=== PATIENT | male | born 1945 | race Caucasian/White ===

== ENCOUNTER 2016-09-02 10:50 | Inpatient (IN) | payer MEDICARE, OTHER ==
[~2016-09-02] VITALS: Ht 177.8 cm; Wt 70.3 kg
--- NOTE | 2016-09-02 11:32 | NUR ---
RT IN PT ROOM
[2016-09-02 11:45] LABS: ABG PCO2 36 mmHg (35-45); ABG PH 7.41 (7.35-7.45)
[2016-09-02 11:46] LABS: ABG OXYGEN SATURATION 85 % (95-98); ABG PO2 49 mmHg (80-105); ARTERIAL BLOOD GAS DELIVERY Room Air
--- NOTE | 2016-09-02 11:46 | NUR ---
XRAY IN PT ROOM
[2016-09-02 11:56] LABS: MEAN CORPUSCULAR HEMOGLOBIN 28.8 PG (26.0-34.0); MEAN CORPUSCULAR HGB CONC 34.3 g/dL (31.0-37.0); MEAN CORPUSCULAR VOLUME 84 FL (80-100); MEAN PLATELET VOLUME 10.5 FL (6.0-9.5); PLATELET COUNT 171 10^3uL (150-450)
[2016-09-02 12:17] LABS: ANION GAP 18.4 MEQ/L (3-15)
[2016-09-02 12:18] LABS: ALBUMIN 4.6 g/dL (3.4-5.0); CALCULATED IONIZED CALCIUM 3.6 mg/dL (3.8-4.6); TOTAL PROTEIN 8.3 g/dL (6.4-8.5)
[2016-09-02 12:22] LABS: BAND NEUTROPHILS % 1 % (0-6); EOSINOPHILS % 0 % (0-4); LYMPHOCYTES # 0.4 #; MONOCYTES # 0.7 #; MONOCYTES % 8 % (3-11); RBC MORPH NORMAL (NORMAL); SEGMENTED NEUTROPHILS % 87 % (51-67); TOTAL CELLS COUNTED 100
[2016-09-02] MEDS ORDERED: DEXAMETHASONE 10 MG/ML (DECADRON) VIAL IV ONE (13:10)
[2016-09-02] MEDS ORDERED: SODIUM CHLORIDE FLUSH 10 ML SYR IV PRN (13:10)
[2016-09-02] MEDS ORDERED: ALBUTEROL/IPRATROPIUM 3MG-0.5MG/3ML (DUONEB) NEB VIAL INH ONE (13:10)
--- NOTE | 2016-09-02 13:36 | NUR ---
patient is unable to void for UA
[2016-09-02] MEDS ORDERED: ACETAMINOPHEN 325 MG TAB (TYLENOL) PO PRN (14:30)
[2016-09-02] MEDS ORDERED: ALBUTEROL 0.083% NEB SOLUTION 2.5 MG/3 ML VIAL INH PRN (14:30)
[2016-09-02] MEDS ORDERED: CALCIUM CARBONATE CHEWABLE 300 MG (TUMS) TABLET PO PRN (14:30)
[2016-09-02] MEDS ORDERED: MAGNESIUM HYDROXIDE 80MG/ML (MILK OF MAGNESIA) 30 ML UDC PO PRN (14:30)
[2016-09-02] MEDS ORDERED: ONDANSETRON 4 MG (ZOFRAN) ORAL DISSOLVE TAB PO PRN (14:30)
[2016-09-02] MEDS ORDERED: DOCUSATE SODIUM 100 MG (COLACE) CAP PO PRN (14:30)
[2016-09-02] MEDS ORDERED: POLYETHYLENE GLYCOL 17 GM (MIRALAX) PACKET PO PRN (14:30)
[2016-09-02] MEDS ORDERED: IBUPROFEN 600 MG (MOTRIN) TAB PO PRN (14:30)
[2016-09-02] MEDS ORDERED: ONDANSETRON 2 MG/ML (Z0FRAN) 2 ML VIAL IV PRN (14:30)
--- NOTE | 2016-09-02 14:33 | NUR ---
71 yr old w/m admitted to 315 from ER via w/c. Accompanied by . Alert and oriented. Cooperative. Resp. sl labored. O2 on at 3L. C/o being hungry and generalized aching in joints. See admission data base.
[2016-09-02] MEDS ORDERED: NICOTINE POLACRILEX 2 MG (NICORETTE) GUM BC PRN (14:40)
[2016-09-02 14:50] VITALS: BP 149/76
[2016-09-02 14:53] VITALS: BP 149/76
[2016-09-02] MEDS ORDERED: DEXTROSE 50% 25 GM/50 ML SYRINGE IV PRN (15:10)
[2016-09-02] MEDS ORDERED: DEXTROSE ORAL GEL (GLUTOSE 40%) 15 GM TUBE PO PRN (15:10)
[2016-09-02] MEDS ORDERED: GLUCAGON EMERGENCY 1 MG/KIT IM PRN (15:10)
[2016-09-02] MEDS: NICOTINE 21 MG (NICODERM) PATCH TD SCH (15:14)
[2016-09-02] MEDS: DOXYCYCLINE 100 MG (VIBRAMYCIN) TABLET PO SCH ×2 (15:14→18:19)
[2016-09-02 16:11] VITALS: BP 149/77
--- NOTE | 2016-09-02 16:24 | NUR ---
MED REC COMPLETE--current med list obtained from [facility] and patient interview.
[2016-09-02 16:44] VITALS: BP 149/77
[2016-09-02 17:31] LABS: CLARITY,URINE Clear; GLUCOSE, URINE (UA) Negative (Negative); LEUKOCYTE ESTERASE ,URINE Negative (Negative); PH,URINE 5.5 (5.0 - 8.0); UROBILINOGEN,URINE 0.2 mg/dL (0.2-1.0)
[2016-09-02] MEDS: INSULIN LISPRO 1 UNIT/0.01 ML (HUMALOG) DOSE SC SCH ×2 (17:37→21:11)
[2016-09-02 17:44] LABS: BILIRUBIN,URINE 1+ (Negative); COLOR,URINE Dark Yellow
[2016-09-02 17:45] LABS: URINE CENTRIFUGED VOLUME 12 mL
--- NOTE | 2016-09-02 17:47 | NUR ---
Wheezing on R. O2 @ 3L nc, 93-95%. Cont. sat monitor set up as ordered.
--- NOTE | 2016-09-02 18:12 | NUR ---
Ibuprofen 600 mg given for c/o generalized aching in joints. Sitting up on edge of bed eating supper. Some audible wheezing noted. O2 on at 3L. Alert and cooperative. Voided x 1 since admit. UA sent to lab at 1640.
--- NOTE | 2016-09-02 20:00 | NUR ---
Patient was up to the bathroom earlier at shift change. Voided 200 cc yellow urine. Urine on the floor and patient trying to clean it up. Assisted patient back to bed. Staff cleaned up the floor. Patient is alert and oriented at this time. Reminded patient to use call light when he needs assistance. No SOA after being up. No discomforts noted at this time. Oxygen remains on at 3 liters per nasal cannula. No respiratory distress noted. Continuous pulse oximeter shows 94% at this time. Call light within reach. Bed alarm placed on for safety.
[2016-09-02] MEDS: DONEPEZIL 10 MG (ARICEPT) TAB PO SCH (20:25)
[2016-09-02] MEDS: CALCIUM CARBONATE 500 MG + VITAMIN D 200 IU TABLET PO SCH (20:25)
[2016-09-02] MEDS: MEMANTINE 10 MG (NAMENDA) TABLET PO SCH (20:25)
[2016-09-02] MEDS: ALBUTEROL/IPRATROPIUM 3MG-0.5MG/3ML (DUONEB) NEB VIAL INH SCH ×2 (22:47→22:51)
[2016-09-02] MEDS: BUDESONIDE NEBS 0.5 MG/2ML (PULMICORT) AMP INH SCH (22:47)
--- NOTE | 2016-09-02 22:51 | NUR ---
Pt found lying in bed on 3.5 l/min NC, SPO2 93%, HR 68, RR 16 and non labored with clear and diminished throughout all lung edmond before and after Duoneb and Pulmicort via SVN which was tolerated well. IS x5 x1500
[2016-09-02 23:48] VITALS: BP 124/68
[2016-09-03 00:06] VITALS: BP 124/68
[2016-09-03] MEDS: ALBUTEROL/IPRATROPIUM 3MG-0.5MG/3ML (DUONEB) NEB VIAL INH SCH ×4 (05:44→22:38)
--- NOTE | 2016-09-03 05:45 | NUR ---
Pt found lying in bed on 3.5 l/min NC, SPO2 95%, HR 66, RR 14 and non labored. BS clear and slightly diminished before and after Duoneb via SVN which was tolerated well.
[2016-09-03] MEDS: INSULIN LISPRO 1 UNIT/0.01 ML (HUMALOG) DOSE SC SCH ×4 (06:00→21:16)
[2016-09-03] MEDS: PANTOPRAZOLE 40 MG (PROTONIX) TAB PO SCH (06:07)
[2016-09-03] MEDS: DOXYCYCLINE 100 MG (VIBRAMYCIN) TABLET PO SCH ×2 (06:29→18:15)
[2016-09-03 06:37] LABS: ALBUMIN 4.1 g/dL (3.4-5.0); PHOSPHORUS 4.5 mg/dL (2.4-4.9)
[2016-09-03 06:38] LABS: BASOPHILS % (AUTO) 0 % (0-2); EOSINOPHILS % (AUTO) 0 % (0-4); LYMPHOCYTES # (AUTO) 0.7 X10^3; MEAN CORPUSCULAR HEMOGLOBIN 28.8 PG (26.0-34.0); MEAN CORPUSCULAR HGB CONC 34.1 g/dL (31.0-37.0); MEAN CORPUSCULAR VOLUME 84 FL (80-100); MEAN PLATELET VOLUME 10.5 FL (6.0-9.5); MONOCYTES # (AUTO) 0.8 X10^3; MONOCYTES % (AUTO) 10 % (3-11); NEUTROPHILS # (AUTO) 6.4 X10^3; NEUTROPHILS % (AUTO) 80 % (51-67); PLATELET COUNT 164 10^3uL (150-450); WHITE BLOOD COUNT 7.98 10^3uL (4.0-11.0)
[2016-09-03] MEDS: ASPIRIN 81 MG CHEW (CHILDREN'S ASA) PO SCH (08:18)
[2016-09-03] MEDS: predniSONE 20 MG (DELTASONE) TABLET PO SCH (08:18)
[2016-09-03] MEDS: CALCIUM CARBONATE 500 MG + VITAMIN D 200 IU TABLET PO SCH ×2 (08:18→21:14)
[2016-09-03] MEDS: MEMANTINE 10 MG (NAMENDA) TABLET PO SCH ×2 (08:19→21:14)
[2016-09-03] MEDS: ENOXAPARIN 40 MG/0.4 ML (LOVENOX) SYR SC SCH (08:19)
[2016-09-03 08:21] VITALS: BP 124/67
--- NOTE | 2016-09-03 08:26 | NUR ---
Patient rested at long intervals tonight. Continuous Sat monitor beeped only a few times last night and went down to 88%, then readily returned to 94%. Patient alert and oriented this morning. Oxygen remains on. Uses call light. Will get another sputum for us this morning.
[2016-09-03 08:32] VITALS: BP 124/67
[2016-09-03] MEDS ORDERED: NON-FORMULARY MEDICATION 1 EA EA (Memantine HCl/Donepezil HCl (Namzaric 28 mg-10 mg Capsul PO SCH (09:00)
[2016-09-03] MEDS: BUDESONIDE NEBS 0.5 MG/2ML (PULMICORT) AMP INH SCH ×2 (11:47→22:38)
[2016-09-03] MEDS ORDERED: SODIUM CHLORIDE FLUSH 10 ML SYR IV PRN (13:10)
[2016-09-03] MEDS: NICOTINE 21 MG (NICODERM) PATCH TD SCH (14:38)
[2016-09-03 16:43] VITALS: BP 127/65
--- NOTE | 2016-09-03 18:00 | NUR ---
Has been up ad zee in room - to bathroom. O2 weaned to 2 L now. O2 sats generally in low 90's. Occasional nonproductive cough. Family visited several times during day. Alert and cooperative. Has voiced no complaints of pain. Had sliding scale insulin noon and evening meal.
[2016-09-03 18:46] VITALS: BP 127/65
--- NOTE | 2016-09-03 20:00 | NUR ---
Patient resting in bed. Is alert and oriented at this time. Pleasant. Denies any discomforts. No cough noted. Patient feels like RT treatments do help him. Continuous pulse oximeter on, reading 96%. Oxygen on at 2 liters per nasal cannula. No discomforts voiced. No cough. Unable to get sputum specimen from him today. Hoping to go home in the am.
[2016-09-03] MEDS ORDERED: ATORVASTATIN 40 MG (LIPITOR) TABLET PO SCH (21:00)
[2016-09-03] MEDS: DONEPEZIL 10 MG (ARICEPT) TAB PO SCH (21:15)
--- NOTE | 2016-09-03 22:43 | NUR ---
Pt found lying in bed on 2 l/min NC, SPO2 94%, HR 84, RR 16 and non labored with clear BS before and after Duoneb and Pulmicort via SVN. IS continues on his own.
[2016-09-03 23:57] VITALS: BP 123/66
[2016-09-04 00:52] VITALS: BP 123/66
[2016-09-04] MEDS: ALBUTEROL/IPRATROPIUM 3MG-0.5MG/3ML (DUONEB) NEB VIAL INH SCH ×2 (05:18→11:21)
--- NOTE | 2016-09-04 05:19 | NUR ---
Pt found lying in be on 2 l/min NC, SPO2 96%, HR 77, RR 14 and non labored with clear BS before and after Duoneb via SVN.
[2016-09-04] MEDS: PANTOPRAZOLE 40 MG (PROTONIX) TAB PO SCH (06:19)
[2016-09-04] MEDS: DOXYCYCLINE 100 MG (VIBRAMYCIN) TABLET PO SCH (06:19)
[2016-09-04] MEDS: INSULIN LISPRO 1 UNIT/0.01 ML (HUMALOG) DOSE SC SCH ×2 (06:20→11:30)
[2016-09-04 07:30] VITALS: BP 133/69
--- NOTE | 2016-09-04 07:30 | NUR ---
Patient resting in bed upon shift assessment. Alert and oriented X3. Denies pain, SOA, or nausea. Oxygen saturation 98% on 2L of 02. Titrated to roomair. Lung sounds diminished throughout. HR RRR. No edema noted to BLE. Updated on plan of care for shift. Call light in reach.
--- NOTE | 2016-09-04 08:00 | NUR ---
Oxygen saturation 96% on roomair. Patient denies SOA. Will continue to monitor.
[2016-09-04 08:24] VITALS: BP 133/69
[2016-09-04] MEDS: CALCIUM CARBONATE 500 MG + VITAMIN D 200 IU TABLET PO SCH (08:35)
[2016-09-04] MEDS: ENOXAPARIN 40 MG/0.4 ML (LOVENOX) SYR SC SCH (08:35)
[2016-09-04] MEDS: MEMANTINE 10 MG (NAMENDA) TABLET PO SCH (08:35)
[2016-09-04] MEDS: ASPIRIN 81 MG CHEW (CHILDREN'S ASA) PO SCH (08:35)
[2016-09-04] MEDS: predniSONE 20 MG (DELTASONE) TABLET PO SCH (08:35)
--- NOTE | 2016-09-04 08:36 | NUR ---
NUTRITION ASSESSMENT Level 1 Patient: Joshua Bowers Age/Sex: 71/M Date Screened: 09-04-16 Weight: 154.6#/70.3 kg Height: 70 inches Primary Diagnosis: acute respiratory failure Diet Order: large diabetic Relevant labs: Hgb A1c 6.9, cholesterol <50, triglycerides 11, LDL 20, HDL 28 Food allergies: N Nutrition Assessment Criteria Age over 80: N Body Mass Index (BMI) under 19: N Admission Screening Indicates Risk? N Moderate/High Risk Diagnosis: 3 points TPN or PPN: N NPO or clear liquid diet: N Serum Glucose <70 or >180: N Hgb A1c >6.7: 3 points Total: 6 points Risk Screen: __ Patient at low nutritional risk based on available data; reevaluate in 5-7 days __ Patient at moderate nutritional risk based on available data; reevaluate in 3-5 days _X_ Patient at high nutritional risk; complete Nutrition Assessment within 48 hours of admission.
[2016-09-04] MEDS ORDERED: MAGNESIUM HYDROXIDE 80MG/ML (MILK OF MAGNESIA) 30 ML UDC PO PRN (09:30)
[2016-09-04] MEDS ORDERED: DOCUSATE SODIUM 100 MG (COLACE) CAP PO PRN (09:30)
[2016-09-04] MEDS ORDERED: POLYETHYLENE GLYCOL 17 GM (MIRALAX) PACKET PO PRN (09:30)
[2016-09-04] MEDS: BUDESONIDE NEBS 0.5 MG/2ML (PULMICORT) AMP INH SCH (11:21)
--- NOTE | 2016-09-04 12:38 | NUR ---
Discharge order received. IV discontinued with catheter intact. No redness or swelling noted at insertion site. Instructions provided to patient and with verbal and written understanding expressed.
--- NOTE | 2016-09-04 13:07 | NUR ---
Patient dismissed via wheelchair to private car accompanied by PIPE WELDER and . No further needs.
== END 2016-09-04 13:05 | disposition home or self-care (01) | DRG 189 ==
LOC: ED 10:53 → MED/SURG 13:38
PROVIDERS: ADMIT Family Medicine; ATTEND Family Medicine
DX: J96.21 Acute and chronic respiratory failure with hypoxia (principal); J44.1 Chronic obstructive pulmonary disease with (acute) exacerbation; E11.9 Type 2 diabetes mellitus without complications; M35.3 Polymyalgia rheumatica; K21.9 Gastro-esophageal reflux disease without esophagitis; F03.90 Unspecified dementia, unspecified severity, without behavioral disturbance, psychotic disturbance, mood disturbance, and anxiety; F17.210 Nicotine dependence, cigarettes, uncomplicated; Z87.820 Personal history of traumatic brain injury
CPT/HCPCS: 36415; 36600; 51798; 71010; 80053; 80061; 80069; 81003; 81015; 82803; 83036; 85025; 93005; 94640; 94762; 96374; 99283; 99285

== ENCOUNTER → 2016-09-15 | Outpatient (CLI) | payer MEDICARE, OTHER | LOC: LAB 08:29 | PROVIDERS: ATTEND Family Medicine | DX: E11.9 Type 2 diabetes mellitus without complications (principal) | CPT/HCPCS: 36415; 83036 ==

== ENCOUNTER → 2016-09-18 | Outpatient (CLI) | payer MEDICARE, OTHER | LOC: RT 15:37 | PROVIDERS: ATTEND Family Medicine | DX: J96.01 Acute respiratory failure with hypoxia (principal) | CPT/HCPCS: 94762 ==

== ENCOUNTER → 2016-12-18 | Outpatient (REF) | payer MEDICARE, OTHER ==
[~2016-12-18] MED LIST: ALBU2.5V12 INH; ALBU8.5H2 IH; ASPI-860 PO; CALC-140 PO; CALC500T55 PO; DOXY100T41 PO; IPRA3AMP11 INH; MELO-255 PO; MEMA1CAP3 PO; METF-473 PO; METF500T4 PO; NCT21TD TD; OMEP20TA PO; PRD20T PO; PRD5T PO; PRED5TAB PO
== END ==
LOC: LAB 15:11
PROVIDERS: ATTEND Family Medicine
DX: E11.9 Type 2 diabetes mellitus without complications (principal)
CPT/HCPCS: 83036